=== PATIENT | female | born 1950 | race Caucasian/White ===

== ENCOUNTER 2019-10-30 05:13 | Inpatient (IN) ==
[2019-10-30] MEDS ORDERED: ASPIRIN CHEW 324 MG PO STA (05:27)
[2019-10-30] MEDS ORDERED: NITROGLYCERIN 2% OINTMENT 30GM TUBE EXT ONE (05:27)
--- NOTE | 2019-10-30 05:34 | Emergency Department Note ---
Impression & Plan Substernal chest pain ED Provider Note Name: KASANDRA SPARROW Age: 69 Sex: F Arrives Via: Walk-In Informant: Patient ED Provider: Drew Do MD Chief Complaint: Chest Pain Impression: Substernal Chest Pain Medical Decision Makin yr old female with CAD, Anxiety/Depression, GERD, HTN, DLP, Migraines, Vit D Deficiency arrives with substernal chest pain resolved with SLNTG. ASA given and nitro paste. Initial EKG with anterior T wave inversions but similar to previous EKG 2 years ago. Labs unremarkable with negative trop and CXR clear. With extensive history and fact she is having increasing dyspnea on exertion felt that she will need to come in for further management and evaluation, especially given chest pain began just 1.5 hrs CRUSHER. Symptoms do not seem consistent with PE nor dissection. She does not appear to have acute infection at this time. Prior Medical Record and Triage/Nursing Notes reviewed by Me Additional history obtained from Chart Differentials:Cardiac ischemia, aortic dissection, pulmonary embolism, pneumothorax, pneumonia, pericarditis, myocarditis, esophageal rupture, GERD, cholecystitis, pancreatitis, musculoskeletal, as well as other pathologies. Vital Signs: reviewed and remarkable for no significant abnormalities Interventions: ASA 324mg PO, Nitro Paste Labs:Reviewed and remarkable for no significant abnormalities Imaging:X ray results are stated below per my interpretation: Chest: 1 view: No infiltrate, no effusion, normal cardiac border. EKG:Per My Interpretation: Indication Chest Pain: NSR 70 bpm, qtc 434 with non- specific anterior t wave abnormalities similar to previous ekgs. No Ectopy. No Ischemia. Compared to EKG 03/17/19, no significant changes. Cardiac/Tele Monitoring: Cardiac Monitoring: An Order was placed for continuous cardiac monitoring. The monitor shows a rate of 70 with a normal sinus rhythm. Consults:Dr Cory SMITH Hospitalist for further management Plan: Disposition:Hospitalization. Condition: Good Blood pressure:Normal.No Referral necessary Prescriptions:none PDMP: n/a History of Present Illness:69 / pleasant female with history of CAD s/p stent x 2 in 2007, HTN, Depression, GERD, Migraine, DLP, Vitamin D Deficiency, Anxiety arrives for evaluation of chest pain. Patient notes she awoke with substernal chest pain around 4 am (~1.5 hr CRUSHER). Pain heavy and crushing. Associated with shortness of breath. No syncope, palpitations, nausea, vomiting. She took 2 Rolaids without improvement. Took 1 SLNTG and pain improved, now just mildly dull. Notes this is not like previous GERD symptoms. She notes she has been having increasing SHOB with exertion, better with rest over last few weeks. Denies chest pains until tonight. Denies trauma, injury, falls. Denies fevers, chills, abdominal pain, back pain, leg swelling, calf pain, rashes nor other symptoms. She has had no recent travel. ROS: See above HPI for pertinent positives & negatives. A total of 10 systems reviewed and were otherwise negative. 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 EYES: No scleral icterus, unremarkable pupils. ENT: Mucous membranes moist, no nasal congestion. NECK: No masses appreciated, nomeningismus, trachea is midline. RESPIRATORY: No dyspnea. Clear to auscultation and equal bilaterally. No wheeze, no rhonchi. CARDIOVASCULAR: Regular rate and rhythm.No murmurs, rubs, gallops appreciated. GASTROINTESTINAL: Abdomen soft, non-tender, no peritonitis.Bowel sounds positive.No masses appreciated. BACK: No midline tenderness, no CVA tenderness EXTREMITIES: Normal motion all extremities, no cyanosis, no edema. NEUROLOGIC: Alert and oriented, no acute motor or sensory deficits, no focal weakness, cranial nerves grossly intact. SKIN: No rash, no jaundice, no diaphoresis. PSYCH: Appropriate GCS: 15 ED Course: Times/Reassessments: Stable, feeling well, agreeable hospitalization Drew Do MD Past Med/Surg History Medical History (Updated 10/30/19 @ 06:32 by Ana Ray DO) Barretts esophagus Depression Former smoker Heart attack 2007 Herpes simplex Migraine headache Tubular adenoma Upper respiratory tract infection Social History Smoking Status: Former smoker Age Started Using Tobacco: 28; Age Quit Using Tobacco: 49; Second Hand Exposure: No; Hx Alcohol Use: No Hx Substance Use: No Preferred Language: Mohawk Communication Ability: Effective Visual Impairment: No Limitations Hearing Ability: Normal Performance Test Architect Required: No Beliefs That Will Affect Care: None marital status: Single Current Living Situation: Alone current occupational status: unemployed Feels Safe at Home: Yes Dental Care, Regularly: Yes Physical Activity Frequency: Does not Exercise Allergies Allergies Allergy/AdvReac Type Severity Reaction Status Date / Time No Known Drug Allergies Allergy Unknown Verified 10/30/19 05:42 Home Meds Home Medications Medication Instructions Recorded Confirmed aspirin [Aspir-Low] 81 mg PO QAM 01/15/19 10/30/19 cholecalciferol (vitamin D3) 1,000 units PO QAM 01/15/19 10/30/19 paroxetine HCl 40 mg PO QAM 01/15/19 10/30/19 Previous Rx's Medication Instructions Recorded buspirone 5 mg tablet 5 mg PO QAM #90 tab 08/31/19 losartan 25 mg tablet 25 mg PO QPM #90 tab 08/31/19 dicyclomine 10 mg capsule 10 mg PO TID #360 cap 09/02/19 valacyclovir 1 gram tablet 1,000 mg PO QAM #90 tab 09/08/19 budesonide 3 mg 9 mg PO DAILY 56 Days #168 ea 09/23/19 capsule,delayed,extended release diclofenac sodium 1 % topical gel 2 gm TOP QID #100 gm 09/23/19 metoprolol tartrate 50 mg tablet 25 mg PO BID #90 tab 09/23/19 omeprazole 20 mg capsule,delayed 20 mg PO DAILY #90 cap 09/23/19 release rosuvastatin 40 mg tablet 40 mg PO QAM #90 tab 09/23/19 Results & Data (ED) Vital Signs Vital Signs - 24 hr 10/30/19 05:20 10/30/19 05:30 10/30/19 06:01 Temperature 37.0 C Temperature Source Oral Pulse Rate 69 67 66 Pulse Rate from SpO2 Sensor 69 66 Respiratory Rate 17 14 14 Respiratory Effort / Characteristics Non-Labored Spontaneous Respiratory Depth Normal Blood Pressure 140/76 119/76 137/76 Blood Pressure Mean 95 89 93 Pulse Oximetry 96 96 94 Oxygen Delivery Method Room Air Sepsis New/Unexplained Change in Mental Status N/A Sepsis Action Taken by Nursing No Action Required Laboratory Data Result diagrams: 10/30/19 05:25 10/30/19 05:25 Lab Results 10/30/19 10/30/19 10/30/19 Range/Units 05:25 05:25 05:25 WBC 7.68 (4.8-10.8) K/uL RBC 4.70 (4.2-5.4) M/uL Hgb 15.2 (12.0-16.0) g/dL Hct 44.5 (37-47) % MCV 94.7 (80-100) fL MCH 32.3 (25-34) pg MCHC 34.2 (32-36) g/dL RDW Std Deviation 45.1 (36.4-46.3) fL RDW Coeff of Jenae 12.9 (11.5-14.5) % Plt Count 229 (130-400) K/uL MPV 10.4 (7.4-10.4) fL Immature Gran % (Auto) 0.3 % Neut % (Auto) 39.0 % Lymph % (Auto) 42.8 % Banner % (Auto) 14.1 % Eos % (Auto) 3.3 % Baso % (Auto) 0.5 % Neut # (Auto) 3.00 (1.4-6.5) K/uL Lymph # (Auto) 3.29 (1.2-3.4) K/uL Banner # (Auto) 1.08 H (0.11-0.59) K/uL Eos # (Auto) 0.25 (0-0.5) K/uL Baso # (Auto) 0.04 (0-0.2) K/uL Immature Gran # (Auto) 0.02 (0.00-0.02) K/uL PT 10.4 (9.0-12.0) Seconds INR 1.0 (0.9-1.1) APTT 25.2 (21.0-31.0) Seconds PTT Ratio 0.9 Sodium 141 (136-145) mmol/L Potassium 4.2 (3.5-5.1) mmol/L Chloride 109 H (98-107) mmol/L Carbon Dioxide 28 (21-32) mmol/L Anion Gap 4.0 (3-11) BUN 15 (7-18) mg/dl Creatinine 0.96 (0.6-1.2) mg/dl Est Cr Clr Drug Dosing 54.8 ml/min Est GFR ( Amer) 69.0 Est GFR (Non-Af Amer) 59.5 BUN/Creatinine Ratio 16.1 (10-20) Glucose 100 H (70-99) mg/dl Calcium 8.8 (8.5-10.1) mg/dl Magnesium 1.9 (1.8-2.4) mg/dl Total Bilirubin 0.4 (0.2-1) mg/dl Direct Bilirubin < 0.1 (0-0.2) mg/dl AST 25 (15-37) U/L ALT 47 (12-78) U/L Alkaline Phosphatase 70 (45-117) U/L POC Troponin I (0-0.045) ng/ml Troponin I < 0.015 (0-0.045) ng/ml Total Protein 7.2 (6.4-8.2) gm/dl Albumin 3.7 (3.4-5.0) gm/dl Lipase 155 (73-393) U/L 10/30/19 Range/Units 05:29 WBC (4.8-10.8) K/uL RBC (4.2-5.4) M/uL Hgb (12.0-16.0) g/dL Hct (37-47) % MCV (80-100) fL MCH (25-34) pg MCHC (32-36) g/dL RDW Std Deviation (36.4-46.3) fL RDW Coeff of Jenae (11.5-14.5) % Plt Count (130-400) K/uL MPV (7.4-10.4) fL Immature Gran % (Auto) % Neut % (Auto) % Lymph % (Auto) % Banner % (Auto) % Eos % (Auto) % Baso % (Auto) % Neut # (Auto) (1.4-6.5) K/uL Lymph # (Auto) (1.2-3.4) K/uL Banner # (Auto) (0.11-0.59) K/uL Eos # (Auto) (0-0.5) K/uL Baso # (Auto) (0-0.2) K/uL Immature Gran # (Auto) (0.00-0.02) K/uL PT (9.0-12.0) Seconds INR (0.9-1.1) APTT (21.0-31.0) Seconds PTT Ratio Sodium (136-145) mmol/L Potassium (3.5-5.1) mmol/L Chloride (98-107) mmol/L Carbon Dioxide (21-32) mmol/L Anion Gap (3-11) BUN (7-18) mg/dl Creatinine (0.6-1.2) mg/dl Est Cr Clr Drug Dosing ml/min Est GFR ( Amer) Est GFR (Non-Af Amer) BUN/Creatinine Ratio (10-20) Glucose (70-99) mg/dl Calcium (8.5-10.1) mg/dl Magnesium (1.8-2.4) mg/dl Total Bilirubin (0.2-1) mg/dl Direct Bilirubin (0-0.2) mg/dl AST (15-37) U/L ALT (12-78) U/L Alkaline Phosphatase (45-117) U/L POC Troponin I < 0.03 (0-0.045) ng/ml Troponin I (0-0.045) ng/ml Total Protein (6.4-8.2) gm/dl Albumin (3.4-5.0) gm/dl Lipase (73-393) U/L Administered Medications Aspirin (Ecotrin Ectab) 81 mg PO QAM [facility] Stop: 11/29/19 08:59 Last Admin: 10/30/19 08:56 Dose: 81 mg Documented by: [id number] Budesonide (Entocort Ec) 9 mg PO DAILY [facility] Stop: 11/29/19 08:59 Last Admin: 10/30/19 08:56 Dose: 9 mg Documented by: [id number] Buspirone HCl (Buspar) 5 mg PO QAM [facility] Stop: 11/29/19 08:59 Last Admin: 10/30/19 08:57 Dose: 5 mg Documented by: [id number] Diclofenac Sodium (Voltaren 1% Top) 2 gm EXT QID [facility] Stop: 11/29/19 08:59 Last Admin: 10/30/19 20:10 Dose: Not Given Documented by: [id number] Admin: 10/30/19 17:37 Dose: Not Given Documented by: [id number] Admin: 10/30/19 13:07 Dose: Not Given Documented by: [id number] Admin: 10/30/19 09:00 Dose: Not Given Documented by: [id number] Dicyclomine HCl (Bentyl) 10 mg PO TID [facility] Stop: 11/29/19 08:59 Last Admin: 10/30/19 20:08 Dose: 10 mg Documented by: [id number] Admin: 10/30/19 14:49 Dose: Not Given Documented by: [id number] Admin: 10/30/19 08:57 Dose: 10 mg Documented by: [id number] Losartan Potassium (Cozaar) 25 mg PO QPM [facility] Stop: 11/29/19 20:59 Last Admin: 10/30/19 20:08 Dose: 25 mg Documented by: [id number] Metoprolol Tartrate (Lopressor) 25 mg PO BID [facility] Stop: 11/29/19 08:59 Last Admin: 10/30/19 20:09 Dose: 25 mg Documented by: [id number] Admin: 10/30/19 08:58 Dose: 25 mg Documented by: [id number] Pantoprazole Sodium (Protonix) 40 mg PO DAILY [facility] Stop: 11/29/19 08:59 Last Admin: 10/30/19 08:58 Dose: 40 mg Documented by: [id number] Paroxetine HCl (Paxil) 40 mg PO QAM [facility] Stop: 11/29/19 08:59 Last Admin: 10/30/19 08:58 Dose: 40 mg Documented by: [id number] Rosuvastatin Calcium (Crestor) 40 mg PO QAM [facility] Stop: 11/29/19 08:59 Last Admin: 10/30/19 08:58 Dose: 40 mg Documented by: [id number] Valacyclovir HCl (Valtrex) 1,000 mg PO QAM [facility] Stop: 11/29/19 08:59 Last Admin: 10/30/19 08:59 Dose: 1,000 mg Documented by: [id number] Vitamin D (Vitamin D3) 1,000 units PO QAM [facility] Stop: 11/29/19 08:59 Last Admin: 10/30/19 08:57 Dose: 1,000 units Documented by: [id number] Discontinued Medications Aspirin (Aspirin) 324 mg PO NOW STA Stop: 10/30/19 05:28 Last Admin: 10/30/19 05:36 Dose: 324 mg Documented by: [id number] Nitroglycerin (Nitro-Bid 2%) 1 inch EXT NOW ONE Stop: 10/30/19 05:28 Last Admin: 10/30/19 05:36 Dose: 1 inch Documented by: [id number] Pneumococcal Polyvalent Vaccine (Pneumovax-23) 25 mcg IM .ONCE ONE Stop: 10/30/19 07:52 Last Admin: 10/30/19 09:00 Dose: Not Given Documented by: [id number] Discharge Plan Visit Data *Final* Discharge Date/Time: 10/30/19 06:41 Chief Complaint: Cardiac Assessment Stated Complaint: CHEST PAIN,NAUSEA,DIARRHEA,SOB ED Provider: Drew Do Discharge Problem: Substernal chest pain Patient Disposition: Admitted As Inpatient Discharge Instructions Interventions: ED Discharge Assessment Last Done: 10/30/19 06:41
[2019-10-30 05:42] LABS: Basophils # (auto) 0.04 K/uL (0-0.2); Basophils % (auto) 0.5 %; Eosinophils # (auto) 0.25 K/uL (0-0.5); Eosinophils % (auto) 3.3 %; Hematocrit (blood only) 44.5 % (37-47); Hemoglobin 15.2 g/dL (12.0-16.0); Immature Granulocytes # (auto) 0.02 K/uL (0.00-0.02); Immature Granulocytes % (auto) 0.3 %; Lymphocytes # (auto) 3.29 K/uL (1.2-3.4); Lymphocytes % (auto) 42.8 %; Mean Corpuscular Hemoglobin 32.3 pg (25-34); Mean Corpuscular Hgb Conc 34.2 g/dL (32-36); Mean Corpuscular Volume 94.7 fL (80-100); Mean Platelet Volume 10.4 fL (7.4-10.4); Monocytes # (auto) 1.08 K/uL (0.11-0.59); Monocytes % (auto) 14.1 %; Platelet Count 229 K/uL (130-400); RDW Coefficient of Variation 12.9 % (11.5-14.5); RDW Standard Deviation 45.1 fL (36.4-46.3); White Blood Count 7.68 K/uL (4.8-10.8)
[2019-10-30 05:53] LABS: Partial Thromboplastin Ratio 0.9; Partial Thromboplastin Time 25.2 Seconds (21.0-31.0); Prothrombin Time 10.4 Seconds (9.0-12.0)
[2019-10-30 05:59] LABS: Alanine Aminotransferase 47 U/L (12-78); Albumin Level 3.7 gm/dl (3.4-5.0); Aspartate Aminotransferase 25 U/L (15-37); BUN Creatinine Ratio 16.1 (10-20); Bilirubin Direct < 0.1 mg/dl (0-0.2); Blood Urea Nitrogen 15 mg/dl (7-18); Calcium 8.8 mg/dl (8.5-10.1); Carbon Dioxide 28 mmol/L (21-32); Chloride 109 mmol/L (98-107); Creatinine Clr Calc Pharmacy 54.8 ml/min; Est GFR (Non-African American) 59.5; Glucose 100 mg/dl (70-99); Lipase 155 U/L (73-393); Magnesium 1.9 mg/dl (1.8-2.4); Potassium 4.2 mmol/L (3.5-5.1); Sodium 141 mmol/L (136-145)
[2019-10-30 06:05] LABS: Alkaline Phosphatase 70 U/L (45-117); Bilirubin,Total 0.4 mg/dl (0.2-1); Total Protein 7.2 gm/dl (6.4-8.2); Troponin I < 0.015 ng/ml (0-0.045)
--- NOTE | 2019-10-30 06:33 | History & Physical Report ---
Date of Service October 30, 2019 Assessment & Plan (1) Substernal chest pain: 69-year-old female with history of hypertension, hyperlipidemia, CAD status post MN in 2007 with stent placement x2 presenting with acute onset substernal chest pain approximately 2.5 hours ago associated with nausea /shortness of breath/diarrhea. Troponin x1-, EKG with T wave inversions now present in anterior leads. Observation to medical floor telemetry Trend troponin q. 8 hours x 3 sets Nitroglycerin and morphine as needed for chest pain Continue home aspirin, metoprolol, losartan, Crestor Consider inpatient stress testing if troponin remain negative Present on Admission?: Yes (2) Coronary artery disease: Patient with history of CAD status post MN in 2007 with stent placement x2 presenting with chest pain as above Continue aspirin 81 mg p.o. daily Continue metoprolol 25 mg p.o. twice daily Continue losartan 25 mg p.o. every afternoon Continue Crestor 40 mg p.o. every morning Present on Admission?: Yes (3) Microscopic colitis: Chronic. Well-controlled. Continue dicyclomine 10 mg p.o. 3 times daily Continue budesonide 9 mg p.o. daily Present on Admission?: Yes (4) HTN (hypertension): Blood pressure stable, 140/76 at present Continue losartan 25 mg p.o. every afternoon Continue metoprolol 25 mg p.o. twice daily Continue to monitor Present on Admission?: Yes (5) Hyperlipidemia: Chronic. Stable. Continue Crestor 40 mg p.o. every morning Present on Admission?: Yes (6) GERD (gastroesophageal reflux disease): Chronic. Stable. Continue omeprazole 20 mg p.o. daily Present on Admission?: Yes (7) Anxiety: Chronic. Stable. Continue paroxetine 40 mg p.o. every morning Continue buspirone 5 mg p.o. every morning FENHep-Lock. Electrolytes within normal limits. Heart healthy diet as tolerated Prophylaxislow risk for DVT. Encourage ambulation with assistance as needed Codefull per discussion with patient Dispositionobservation to medical floor telemetry Present on Admission?: Yes Admission and Anticipated Discharge Date Admission Date: 10/30/2019 Anticipated date of discharge: 10/31/19 History of Present Illness Chief Complaint: chest pain Primary Care Provider: Terrell Duong MD Amy Vieira is a 69yo female with history of HTN, HLP, strong family history of CAD as well as personal history of CAD with MN in 2007 s/p cardiac stent x 2 performed in [place]. Patient reports that she had 3 blockages however only 2 were amenable to stent. This morning around 0400 the patient was woken from sleep by chest pain. Chest pain was substernal, 10 out of 10 in severity, heavy pressure in nature with radiation across the precordium. Pain associated with shortness of breath, nausea and diarrhea. The patient took 2 Rolaids without relief that a sublingual nitro x1 which improved her pain. She reports that the symptoms are quite similar to when she had her MN back in 2007. Presently she feels much improved, still some mild chest heaviness. Patient follows with Dr. Mcfarland from cardiology. She saw him on 10/28/2019 with complaint of progressive dyspnea on exertion. Dr. Kurtz mentioned he wanted to order a stress test on her to be performed outpatient. ER course: Aspirin 325 mg, Nitropaste Allergies Allergy/AdvReac Type Severity Reaction Status Date / Time No Known Drug Allergies Allergy Unknown Verified 10/30/19 05:42 Home Medications Home Medications Medication Instructions Recorded Confirmed Type aspirin [Aspir-Low] 81 mg PO QAM 01/15/19 10/30/19 History cholecalciferol (vitamin D3) 1,000 units PO QAM 01/15/19 10/30/19 History paroxetine HCl 40 mg PO QAM 01/15/19 10/30/19 History buspirone 5 mg tablet 5 mg PO QAM #90 tab 08/31/19 10/30/19 Rx losartan 25 mg tablet 25 mg PO QPM #90 tab 08/31/19 10/30/19 Rx dicyclomine 10 mg capsule 10 mg PO TID #360 cap 09/02/19 10/30/19 Rx valacyclovir 1 gram tablet 1,000 mg PO QAM #90 tab 09/08/19 10/30/19 Rx budesonide 3 mg 9 mg PO DAILY 56 Days #168 ea 09/23/19 10/30/19 Rx capsule,delayed,extended release diclofenac sodium 1 % topical gel 2 gm TOP QID #100 gm 09/23/19 10/30/19 Rx metoprolol tartrate 50 mg tablet 25 mg PO BID #90 tab 09/23/19 10/30/19 Rx omeprazole 20 mg capsule,delayed 20 mg PO DAILY #90 cap 09/23/19 10/30/19 Rx release rosuvastatin 40 mg tablet 40 mg PO QAM #90 tab 09/23/19 10/30/19 Rx Past Med/Surg History Medical History (Updated 10/30/19 @ 06:32 by Ana Ray DO) Barretts esophagus Depression Former smoker Heart attack 2007 Herpes simplex Migraine headache Tubular adenoma Upper respiratory tract infection Social History Smoking Status: Former smoker Age Started Using Tobacco: 28; Age Quit Using Tobacco: 49; Second Hand Exposure: No; Hx Alcohol Use: No Hx Substance Use: No Preferred Language: Belarusian Communication Ability: Effective Visual Impairment: No Limitations Hearing Ability: Normal Commercial Hvac Service Technician Required: No Beliefs That Will Affect Care: None marital status: Single Current Living Situation: Alone current occupational status: unemployed Feels Safe at Home: Yes Dental Care, Regularly: Yes Physical Activity Frequency: Does not Exercise Review of Systems Review of Systems: All systems reviewed & are unremarkable except as noted in HPI & below Physical Exam Physical Exam: General: patient resting comfortably, NAD, non-toxic in appearance, AA&O x 4 Skin: warm, dry, intact, no rashes or lesions HEENT: NC/AT, PERRL, EOMI, anicteric sclera, conjunctiva without injection, external ear normal to inspection and nontender, nares patent, moist mucus membranes, dentition intact, no oropharyngeal lesions, neck supple, trachea midline, no LAD, no thyromegaly, no JVD Heart: +S1/S2, regular, no m/r/g, + chest wall tenderness with palpation Lungs: equal air entry bilaterally, no rales/rhonchi/wheezes Abd: +BS, soft, NT/ND, no masses/organomegaly/ascites Ext: warm, 2+ pulses in UE/LE bilaterally, no clubbing/cyanosis or edema Neuro: nonfocal, patient AA&O x 4, speech intact, no facial droop, moving all extremities on command with equal strength 5/5 Results & Data Results & Data ([facility]) Vital Signs (Past 12 Hours) Vital Signs Temp Pulse Resp BP Pulse Ox 10/30/19 05:30 67 14 119/76 96 10/30/19 05:20 37.0 C 69 17 140/76 96 Laboratory Results Lab Results 10/30/19 10/30/19 10/30/19 Range/Units 05:25 05:25 05:25 WBC 7.68 (4.8-10.8) K/uL RBC 4.70 (4.2-5.4) M/uL Hgb 15.2 (12.0-16.0) g/dL Hct 44.5 (37-47) % MCV 94.7 (80-100) fL MCH 32.3 (25-34) pg MCHC 34.2 (32-36) g/dL RDW Std Deviation 45.1 (36.4-46.3) fL RDW Coeff of Jenae 12.9 (11.5-14.5) % Plt Count 229 (130-400) K/uL MPV 10.4 (7.4-10.4) fL Immature Gran % (Auto) 0.3 % Neut % (Auto) 39.0 % Lymph % (Auto) 42.8 % Alexander % (Auto) 14.1 % Eos % (Auto) 3.3 % Baso % (Auto) 0.5 % Neut # (Auto) 3.00 (1.4-6.5) K/uL Lymph # (Auto) 3.29 (1.2-3.4) K/uL Alexander # (Auto) 1.08 H (0.11-0.59) K/uL Eos # (Auto) 0.25 (0-0.5) K/uL Baso # (Auto) 0.04 (0-0.2) K/uL Immature Gran # (Auto) 0.02 (0.00-0.02) K/uL PT 10.4 (9.0-12.0) Seconds INR 1.0 (0.9-1.1) APTT 25.2 (21.0-31.0) Seconds PTT Ratio 0.9 Sodium 141 (136-145) mmol/L Potassium 4.2 (3.5-5.1) mmol/L Chloride 109 H (98-107) mmol/L Carbon Dioxide 28 (21-32) mmol/L Anion Gap 4.0 (3-11) BUN 15 (7-18) mg/dl Creatinine 0.96 (0.6-1.2) mg/dl Est Cr Clr Drug Dosing 54.8 ml/min Est GFR ( Amer) 69.0 Est GFR (Non-Af Amer) 59.5 BUN/Creatinine Ratio 16.1 (10-20) Glucose 100 H (70-99) mg/dl Calcium 8.8 (8.5-10.1) mg/dl Magnesium 1.9 (1.8-2.4) mg/dl Total Bilirubin 0.4 (0.2-1) mg/dl Direct Bilirubin < 0.1 (0-0.2) mg/dl AST 25 (15-37) U/L ALT 47 (12-78) U/L Alkaline Phosphatase 70 (45-117) U/L POC Troponin I (0-0.045) ng/ml Troponin I < 0.015 (0-0.045) ng/ml Total Protein 7.2 (6.4-8.2) gm/dl Albumin 3.7 (3.4-5.0) gm/dl Lipase 155 (73-393) U/L 10/30/19 Range/Units 05:29 WBC (4.8-10.8) K/uL RBC (4.2-5.4) M/uL Hgb (12.0-16.0) g/dL Hct (37-47) % MCV (80-100) fL MCH (25-34) pg MCHC (32-36) g/dL RDW Std Deviation (36.4-46.3) fL RDW Coeff of Jenae (11.5-14.5) % Plt Count (130-400) K/uL MPV (7.4-10.4) fL Immature Gran % (Auto) % Neut % (Auto) % Lymph % (Auto) % Alexander % (Auto) % Eos % (Auto) % Baso % (Auto) % Neut # (Auto) (1.4-6.5) K/uL Lymph # (Auto) (1.2-3.4) K/uL Alexander # (Auto) (0.11-0.59) K/uL Eos # (Auto) (0-0.5) K/uL Baso # (Auto) (0-0.2) K/uL Immature Gran # (Auto) (0.00-0.02) K/uL PT (9.0-12.0) Seconds INR (0.9-1.1) APTT (21.0-31.0) Seconds PTT Ratio Sodium (136-145) mmol/L Potassium (3.5-5.1) mmol/L Chloride (98-107) mmol/L Carbon Dioxide (21-32) mmol/L Anion Gap (3-11) BUN (7-18) mg/dl Creatinine (0.6-1.2) mg/dl Est Cr Clr Drug Dosing ml/min Est GFR ( Amer) Est GFR (Non-Af Amer) BUN/Creatinine Ratio (10-20) Glucose (70-99) mg/dl Calcium (8.5-10.1) mg/dl Magnesium (1.8-2.4) mg/dl Total Bilirubin (0.2-1) mg/dl Direct Bilirubin (0-0.2) mg/dl AST (15-37) U/L ALT (12-78) U/L Alkaline Phosphatase (45-117) U/L POC Troponin I < 0.03 (0-0.045) ng/ml Troponin I (0-0.045) ng/ml Total Protein (6.4-8.2) gm/dl Albumin (3.4-5.0) gm/dl Lipase (73-393) U/L Diagnostic Findings Chest x-rayunremarkable, formal read pending ECG Additional Comments: Study reveals normal sinus rhythm at 70 bpm, normal axis, [place] = 152, QRS = 86, QTc = 434. T wave inversions present in anterior leads V1, V2, V3 Code Status & VTE Plan Code Status Full code PG Care Time/CCT Total # of Minutes Spent Total Time Spent with Patient: Total time spent is greater than 50% in coordination of care (as documented) at patient's floor/unit and/or counseling patient: Coding Level of Care Code 50772 OBS Care - Level 3 Diagnoses Substernal chest pain R07.2 Coronary artery disease I25.10 Coronary Disease-Associated Artery/Lesion type: [place] artery [place] vs. transplanted heart: [place] heart Associated angina: without angina Microscopic colitis K52.839 Microscopic colitis type: unspecified HTN (hypertension) I10 Hypertension type: unspecified Hyperlipidemia E78.5 Hyperlipidemia type: unspecified GERD (gastroesophageal reflux disease) K21.9 Esophagitis presence: esophagitis presence not specified Anxiety F41.9 (1) Microscopic colitis Microscopic colitis type: unspecified Qualified Code(s): K52.839 - Microscopic colitis, unspecified (2) HTN (hypertension) Hypertension type: unspecified Qualified Code(s): I10 - Essential (primary) hypertension (3) Hyperlipidemia Hyperlipidemia type: unspecified Qualified Code(s): E78.5 - Hyperlipidemia, unspecified (4) GERD (gastroesophageal reflux disease) Esophagitis presence: esophagitis presence not specified Qualified Code(s): K21.9 - Gastro-esophageal reflux disease without esophagitis (5) Coronary artery disease Coronary Disease-Associated Artery/Lesion type: [place] artery [place] vs. transplanted heart: [place] heart Associated angina: without angina Qualified Code(s): I25.10 - Atherosclerotic heart disease of [place] coronary artery without angina pectoris
--- NOTE | 2019-10-30 07:25 | XRay Report ---
XR chest 1V portable CLINICAL HISTORY: Chest Pain pain COMPARISON STUDY: 03/17/2019 FINDINGS: The bones soft tissues and hemidiaphragms are normal. The cardiomediastinal silhouette is n ormal. The lungs are clear. The pulmonary vasculature is normal. IMPRESSION: Negative chest. ACT 112: Negative or not required by law. The above report was generated using voice recognition software. It may contain grammatical, syntax or spelling errors. Electronically signed by: Alexys Rm M.D. 10/30/2019 7:24 AM
[2019-10-30] MEDS ORDERED: PNEUMOCOCCAL POLYSACCHARIDES 25 MCG/0.5 ML VIAL/SYR IM ONE (07:51)
[2019-10-30] MEDS ORDERED: PNEUMOCOCCAL ADMINISTRATION CHARGE ONE (07:51)
[2019-10-30] MEDS ORDERED: ONDANSETRON INJ 2 MG/ML 2 ML VIAL IV PRN (08:01)
[2019-10-30] MEDS: ASPIRIN 81 MG ECTAB PO SCH (08:56)
[2019-10-30] MEDS: BUDESONIDE EC 3 MG CAP PO SCH (08:56)
[2019-10-30] MEDS: CHOLECALCIFEROL 1,000 UNITS 25 MCG TAB PO SCH (08:57)
[2019-10-30] MEDS: DICYCLOMINE HCL 10 MG CAP PO SCH ×3 (08:57→20:08)
[2019-10-30] MEDS: ROSUVASTATIN CALCIUM 20 MG TAB PO SCH (08:58)
[2019-10-30] MEDS: PANTOprazole 40 MG TAB PO SCH (08:58)
[2019-10-30] MEDS: METOPROLOL TARTRATE 25 MG TAB PO SCH ×2 (08:58→20:09)
[2019-10-30] MEDS: PARoxetine HCL 20 MG TAB PO SCH (08:58)
[2019-10-30] MEDS: VALACYCLOVIR HCL 500 MG TABLET PO SCH (08:59)
[2019-10-30] MEDS: DICLOFENAC SOD 1% GEL 100 GM TUBE EXT SCH ×4 (09:00→20:10)
--- NOTE | 2019-10-30 13:43 | Electrocardiogram Report ---
Test Reason : Blood Pressure : / mmHG Vent. Rate : 070 BPM Atrial Rate : 070 BPM P-R Int : 152 ms QRS Dur : 086 ms QT Int : 402 ms P-R-T Axes : -29 013 010 degrees QTc Int : 434 ms Normal sinus rhythm Nonspecific T wave abnormality Abnormal ECG When compared with ECG of 17-MAR-2019 14:32, T wave inversion now evident in Anterior leads Confirmed by Macario Khan ([id number]) on 10/30/2019 1:43:23 PM Referred By: REFERRED SELF Confirmed By:Macario Khan
[2019-10-30 14:45] LABS: Appearance Urine Clear (Clear); Bacteria Urine Automated Negative (Negative); Bilirubin Urine Negative (Negative); Blood Urine Negative (Negative); Color Urine Yellow; Epithelial Cell Urine Auto 20-30 /lpf (0-5); Glucose Urine UA Negative (Negative); Ketones Urine Negative (Negative); Leukocyte Esterase Urine 2+ (Negative); Nitrite Urine Negative (Negative); Protein Urine Negative (Negative); RBC Urine Automated 0-4 /hpf (0-4); Specific Gravity Urine 1.009 (1.000-1.030); Urobilinogen Urine Negative (Negative); pH Urine 5.5 (4.5-7.5)
[2019-10-30] MEDS: LOSARTAN POTASSIUM 25 MG TAB PO SCH (20:08)
[2019-10-31] MEDS: MoRPHine SULFATE 2 MG/ML CARP IV PRN (08:11)
[2019-10-31] MEDS: METOPROLOL TARTRATE 25 MG TAB PO SCH ×2 (08:18→20:44)
[2019-10-31] MEDS: PANTOprazole 40 MG TAB PO SCH (08:19)
[2019-10-31] MEDS: VALACYCLOVIR HCL 500 MG TABLET PO SCH (08:19)
[2019-10-31] MEDS: DICYCLOMINE HCL 10 MG CAP PO SCH ×3 (08:19→20:44)
[2019-10-31] MEDS: ASPIRIN 81 MG ECTAB PO SCH (08:20)
[2019-10-31] MEDS: ROSUVASTATIN CALCIUM 20 MG TAB PO SCH (08:20)
[2019-10-31] MEDS: CHOLECALCIFEROL 1,000 UNITS 25 MCG TAB PO SCH (08:20)
[2019-10-31] MEDS: PARoxetine HCL 20 MG TAB PO SCH (08:20)
[2019-10-31] MEDS: BUDESONIDE EC 3 MG CAP PO SCH (08:20)
[2019-10-31] MEDS: DICLOFENAC SOD 1% GEL 100 GM TUBE EXT SCH ×4 (08:21→20:45)
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
[2019-10-31] MEDS: LOSARTAN POTASSIUM 25 MG TAB PO SCH (20:44)
--- NOTE | 2019-10-31 22:00 | Hospitalist Progress Note ---
Date of Service October 31, 2019 Assessment & Plan (1) Substernal chest pain: 69-year-old female with history of hypertension, hyperlipidemia, CAD status post ID in 2007 with stent placement x2 presenting with acute onset substernal chest pain approximately 2.5 hours ago associated with nausea /shortness of breath/diarrhea. Troponin x1-, EKG with T wave inversions now present in anterior leads. Transitioned patient to admission Trend troponin q. 8 hours x 3 sets: all were ndgative. Continue home aspirin, metoprolol, losartan, Crestor consulted cardio: will hold off cath for now, will have doubtamine stress test in AM. (2) Coronary artery disease: Patient with history of CAD status post ID in 2007 with stent placement x2 presenting with chest pain as above Continue aspirin 81 mg p.o. daily Continue metoprolol 25 mg p.o. twice daily Continue losartan 25 mg p.o. every afternoon Continue Crestor 40 mg p.o. every morning (3) Microscopic colitis: Chronic. Well-controlled. Continue dicyclomine 10 mg p.o. 3 times daily Continue budesonide 9 mg p.o. daily (4) HTN (hypertension): Blood pressure stable, 140/76 at present Continue losartan 25 mg p.o. every afternoon Continue metoprolol 25 mg p.o. twice daily Continue to monitor (5) Hyperlipidemia: Chronic. Stable. Continue Crestor 40 mg p.o. every morning (6) GERD (gastroesophageal reflux disease): Chronic. Stable. Continue omeprazole 20 mg p.o. daily (7) Anxiety: Chronic. Stable. Continue paroxetine 40 mg p.o. every morning Continue buspirone 5 mg p.o. every morning FENHep-Lock. Electrolytes within normal limits. Heart healthy diet as tolerated Prophylaxislow risk for DVT. Encourage ambulation with assistance as needed [place] per discussion with patient y Admission and Anticipated Discharge Date Admission Date: October 30, 2019 Subjective Patient reports feeling well. She denies any dypsnea today or chest pain. Review of Systems Review of Systems: All systems reviewed & are unremarkable except as noted in HPI & below Physical Exam Physical Exam: General: patient resting comfortably, NAD, non-toxic in appearance, AA&O x 4 Skin: warm, dry, intact, no rashes or lesions HEENT: NC/AT, PERRL, EOMI, anicteric sclera, conjunctiva without injection, external ear normal to inspection and nontender, nares patent, moist mucus membranes, dentition intact, no oropharyngeal lesions, neck supple, trachea midline, no LAD, no thyromegaly, no JVD Heart: +S1/S2, regular, no m/r/g, + chest wall tenderness with palpation Lungs: equal air entry bilaterally, no rales/rhonchi/wheezes Abd: +BS, soft, NT/ND, no masses/organomegaly/ascites Ext: warm, 2+ pulses in UE/LE bilaterally, no clubbing/cyanosis or edema Neuro: nonfocal, patient AA&O x 4, speech intact, no facial droop, moving all extremities on command with equal strength 5/5 Results & Data Results & Data ([facility]) Vital Signs (Past 12 Hours) Vital Signs Temp Pulse Pulse Resp BP BP Pulse Ox 10/31/19 20:43 64 10/31/19 20:42 64 10/31/19 19:14 36.4 C L 59 L 19 107/61 95 10/31/19 14:51 36.6 C 59 L 19 118/53 L 94 10/31/19 14:21 62 10/31/19 11:42 36.9 C 63 20 108/68 94 PG Care Time/CCT Total # of Minutes Spent Total Time Spent with Patient: Total time spent is greater than 50% in coordination of care (as documented) at patient's floor/unit and/or counseling patient: Coding Level of Care Code 18307 Subseq Hosp Care Lvl 2 Diagnoses Substernal chest pain R07.2 Coronary artery disease I25.10 Associated angina: without angina Coronary Disease-Associated Artery/Lesion type: [place] artery [place] vs. transplanted heart: [place] heart Microscopic colitis K52.839 Microscopic colitis type: unspecified HTN (hypertension) I10 Hypertension type: unspecified Hyperlipidemia E78.5 Hyperlipidemia type: unspecified GERD (gastroesophageal reflux disease) K21.9 Esophagitis presence: esophagitis presence not specified Anxiety F41.9 Time Spent (min) 25 (1) Coronary artery disease Associated angina: without angina Coronary Disease-Associated Artery/Lesion type: [place] artery [place] vs. transplanted heart: [place] heart Qualified Code(s): I25.10 - Atherosclerotic heart disease of [place] coronary artery without angina pectoris (2) Hyperlipidemia Hyperlipidemia type: unspecified Qualified Code(s): E78.5 - Hyperlipidemia, unspecified (3) Microscopic colitis Microscopic colitis type: unspecified Qualified Code(s): K52.839 - Microscopic colitis, unspecified (4) GERD (gastroesophageal reflux disease) Esophagitis presence: esophagitis presence not specified Qualified Code(s): K21.9 - Gastro-esophageal reflux disease without esophagitis (5) HTN (hypertension) Hypertension type: unspecified Qualified Code(s): I10 - Essential (primary) hypertension
[2019-10-31] MEDS: MELATONIN 3 MG TAB PO PRN (23:32)
[2019-11-01] MEDS ORDERED: ATROPINE SULFATE 0.1 MG/ML 10ML SYR IV ONE ×2 (08:02→12:01)
[2019-11-01] MEDS ORDERED: DOBUTamine HCL 12.5 MG/ML 20 ML VIAL IV ONE (08:02)
[2019-11-01] MEDS ORDERED: METOPROLOL TARTRATE 1 MG/ML VIAL IV ONE ×2 (08:02→08:36)
[2019-11-01] MEDS: NITROGLYCERIN SL 0.4 MG/TAB TAB SL PRN ×3 (08:38→12:12)
[2019-11-01] MEDS ORDERED: fentaNYL citrate 100 MCG/2 ML VIAL ONE (08:55)
[2019-11-01] MEDS ORDERED: HEPARIN (PORCINE) 1000 UNIT/ML 10 ML (CATH LAB USE ONLY) ONE (08:55)
[2019-11-01] MEDS ORDERED: NITROGLYCERIN/D5W 100MCG/ML 20ML SYR ONE (08:55)
[2019-11-01] MEDS ORDERED: NiCARDipine HCL INJ 2.5 MG/ML 10 ML AMP ONE (08:55)
[2019-11-01] MEDS ORDERED: MIDAZOLAM HCL 1 MG/ML 2ML VIAL ONE (08:55)
--- NOTE | 2019-11-01 09:06 | Pre Anesthesia Assessment ---
Date of Service November 01, 2019 Pre Sedation Assessment Vital Signs Temp Pulse Pulse Resp BP BP Pulse Ox 11/01/19 07:00 36.6 C 60 18 124/71 92 11/01/19 04:00 36.5 C 60 20 89/50 L 91 10/31/19 23:29 37.0 C 58 L 17 110/67 91 10/31/19 20:43 64 10/31/19 20:42 64 10/31/19 19:14 36.4 C L 59 L 19 107/61 95 10/31/19 14:51 36.6 C 59 L 19 118/53 L 94 10/31/19 14:21 62 10/31/19 11:42 36.9 C 63 20 108/68 94 Cardiovascular + regular rate Respiratory normal respiratory effort, lungs clear to auscultation Pre-Sedation Airway Assessment Smoking Status: Former smoker Hx Sleep Apnea: No Hx Difficult Intubation: No Short, Thick Neck: No Thyromental Distance: > or= 3.5 Finger Breadths Oral Cavity: + WNL Mallampati Class: III ASA: ASA3 Procedure Planning Contraindications for Sedation: none Current Medications Reviewed: Yes Notes The planned sedation has been discussed with the patient. Informed Consent was obtained. I have identified the patient, determined the appropriateness of sedation and have assessed the patient immediately prior to the procedure. All medicine(s) and interventions are by my order.
--- NOTE | 2019-11-01 09:44 | Cardiac Catheterization ---
[facility] Data: Soft Tile Setter Cardiac Status Clinical evaluation leading to the procedure CAD Presenation: Positive Stress Test Diagnostic Physicians Name: Mikel Romero MD Closure Device Recommendations: PCI without planned CABG Cardiac Cath Procedure Full Procedure Date November 01, 2019 Pre-Procedure Diagnosis Pre-Procedure Diagnosis: Angina and Positive Stress Test AUC Score AUC Score: 8 Post-Procedure Diagnosis Post-Procedure Diagnosis: Severe CAD Procedure(s) Performed Procedure(s) Performed: Coronary Angiography and Left Heart Cath Loan Originator Mikel Romero MD Chief Development Officer(s) none Estimated Blood Loss Estimated Blood Loss: 10cc Medication(s) Medication(s): Fentanyl Summary of Findings Procedure performed: Left heart catheterization, selective coronary angiography Staff business economist: Mikel Romero MD Indication: The patient is a 69-year-old woman with a history of coronary disease having previously undergone stenting to the LAD and right coronary artery in 2008. She presented to the hospital symptoms of chest pain. She is also been having exertional dyspnea. She underwent dobutamine echocardiography which not reveal any objective ischemia but she did have symptoms of chest discomfort and subsequent nausea. Based on the persistent nature of her symptoms and concerns over stenosis she was brought to the catheterization suite for angiography. Procedure detail: The patient was informed of the risk benefits and alternatives to the intended procedure. She understood and wished to proceed. She was taken to the cardiac catheterization suite in a fasting state. Conscious sedation was administered per protocol and the patient was monitored electrocardiographically throughout today's procedure. The right radial artery was prepped and draped in usual sterile fashion. This area was anesthetized using subcutaneous administration of a Xylocaine solution. Right radial artery was subsequently accessed using Seldinger technique and a 5 [place] arterial sheath was placed at the site over guidewire. This sheath was used to facilitate passage of the cardiac catheters for selective coronary angiography and left heart catheterization. Images were obtained in multiple orthogonal views prior to removal of the catheters. Patient tolerated procedure well. There were no immediate complications. Equipment used: 5 Vietnamese [place] [address] [facility] Findings: Coronary angiography Left main: Left main coronary artery bifurcated normally into the left anterior descending and left circumflex artery. No disease in this vessel Left anterior descending: Left anterior descending had a stent in its proximal portion. There was approximately 40% in-stent stenosis at its maximum. There was a discrete 70% lesion proximal to the stent and a 90% lesion distal to the stent. There was one large diagonal branch that emanated from the mid stent. The ongoing vessel is relatively small. Left circumflex: Left circumflex artery is normal in size and caliber. It was nondominant. It bifurcated into a large OM system. There is no significant disease in this distribution Right coronary artery: Right coronary artery was a dominant vessel. It had a stent in its midportion. There was some stenosis immediately prior to the stent and a 90% lesion distal to the stent. Impression: Right dominant coronary system In-stent restenosis involving the left anterior descending Obstructive coronary disease involving the left anterior descending and right coronary arteries Normal left ventricular end-diastolic pressures No evidence of aortic stenosis Plan: Percutaneous intervention involving the LAD and possibly RCA Hemodynamics Rest Ao:: 90/55 mmHg Final Ao: 108/67 mmHg LV: 113/6 mmHg Left ventricular end-diastolic pressure 10 mmHg Recommendations Recommendations: PCI without planned CABG Radiation Exposure (mGy) 599 Contrast (mls) 35 Procedural Complication(s) None Disposition PCU I attest to the content of the Intraoperative Record and any orders documented therein. Any exceptions are noted below. [facility] Card Cath Procedure Codes Cardiac Catheterization Procedure 1: Cardiovascular Cath Procedures: 37660 Coronaries and LHC (+/-LV) Moderate Sedation Procedure 1: Sedation/Anesthesia: 60317 Mod Sedation by the same physician;Init15 Min Child Age 5 & Up PG Care Time/CCT Total # of Minutes Spent Total Time Spent with Patient: Total time spent is greater than 50% in coordination of care (as documented) at patient's floor/unit and/or counseling patient:
[2019-11-01] MEDS ORDERED: BIVALIRUDIN 250 MG VIAL (CATH LAB ONLY) ONE (09:47)
[2019-11-01] MEDS: ROSUVASTATIN CALCIUM 20 MG TAB PO SCH ×2 (10:28→11:49)
[2019-11-01] MEDS: BUDESONIDE EC 3 MG CAP PO SCH ×2 (10:28→11:50)
[2019-11-01] MEDS: ASPIRIN 81 MG ECTAB PO SCH (10:28)
[2019-11-01] MEDS: DICYCLOMINE HCL 10 MG CAP PO SCH ×3 (10:28→20:50)
[2019-11-01] MEDS: VALACYCLOVIR HCL 500 MG TABLET PO SCH ×2 (10:29→11:49)
[2019-11-01] MEDS: PANTOprazole 40 MG TAB PO SCH ×2 (10:29→11:48)
[2019-11-01] MEDS: DICLOFENAC SOD 1% GEL 100 GM TUBE EXT SCH ×4 (10:29→20:52)
[2019-11-01] MEDS: CHOLECALCIFEROL 1,000 UNITS 25 MCG TAB PO SCH ×2 (10:29→11:49)
[2019-11-01] MEDS: PARoxetine HCL 20 MG TAB PO SCH ×2 (10:29→11:49)
[2019-11-01] MEDS: METOPROLOL TARTRATE 25 MG TAB PO SCH ×2 (10:29→20:50)
[2019-11-01] MEDS ORDERED: CLOPIDOGREL BISULFATE 300 MG TAB ONE (10:35)
--- NOTE | 2019-11-01 10:38 | Post Operative Brief Note ---
Cardiology Brief Post Op Date of Surgery November 01, 2019 Pre & Post Diagnosis Operation Date: 11/01/19 09:00 69-year-old female, previous history of coronary artery disease with intracoronary stents placement to proximal LAD and mid right coronary artery. She was having symptoms of progressive angina, stress test was performed during which patient had quite significant symptoms concerning for obstructive coronary artery disease. Images were reportedly normal. Diagnostic cardiac catheterization revealed severe in-stent restenosis along with edge restenosis in both proximal and distal edge of LAD stent, also severe in-stent restenosis along with edge restenosis and distal right coronary artery stent. PCI performed of proximal left anterior descending artery with 2.75 mm x 33 mm Xience drug-eluting stent, postdilated with 3 mm NC balloon at nominal pressures with excellent angiographic results and normal flow. PCI of distal edge in-stent restenosis of mid right coronary artery stent performed with 3.5 mm x 18 mm Xience drug-eluting stent, postdilated with 4 mm NC balloon with excellent angiographic results and normal flow. Patient will be loaded with 600 mg of Plavix, continue the long-term dual antiplatelet therapy with aspirin and Plavix along with aggressive risk factor modification. Procedure PCI of proximal left anterior descending artery, mid to distal right coronary artery with placement of intracoronary drug-eluting stents. Masseur/Masseuse Sony Zaragoza MD Community Support Associate none Estimated Blood Loss 20 Findings Consistent with Post-Op Diagnosis
[2019-11-01] MEDS ORDERED: CLOPIDOGREL BISULFATE 300 MG TAB PO STA (10:40)
[2019-11-01] MEDS: ACETAMINOPHEN 325 MG TAB PO PRN (10:42)
--- NOTE | 2019-11-01 10:43 | Post Anesthesia Assessment ---
Date of Service November 01, 2019 Post Sedation Assessment Vital Signs Temp Pulse Pulse Resp BP BP Pulse Ox 11/01/19 10:38 63 20 129/78 94 11/01/19 07:00 36.6 C 60 18 124/71 92 11/01/19 04:00 36.5 C 60 20 89/50 L 91 10/31/19 23:29 37.0 C 58 L 17 110/67 91 10/31/19 20:43 64 10/31/19 20:42 64 10/31/19 19:14 36.4 C L 59 L 19 107/61 95 10/31/19 14:51 36.6 C 59 L 19 118/53 L 94 10/31/19 14:21 62 10/31/19 11:42 36.9 C 63 20 108/68 94 Recovery Score Activity: Moves 4 extremities Respiration: Deep Breath/Cough Circulation: +/-20% PreAnes Value Consciousness: Fully Awake Oxygen Saturation: > 92% On Room Air Post Anesthesia Score: 10 Discharge Sedation Level of Care: Phase I Post Sedation Plan On clinical assessment, the patient appears to have tolerated the sedation without complications. Patient is recovering as anticipated. Patient will continue to be monitored by nursing and may be discharged when sedation discharge criteria are met per below protocol. Upon Completions of procedure up to 15 minutes continue every 5 minute vital signs and the P.A.R. score; then discharge to a Phase I or Fast Track to Phase II per the following guidelines: * Discharge Patient to appropriate Phase II area if PAR is 8 or greater or return to pre- procedure baseline. The post - procedure orders will be as directed. * If PAR score is less than 8 or not return to pre-procedure baseline then patient will follow Phase I monitoring till PAR is reached for Phase II. The Phase I may be done in procedure room or may call to secure a Phase I area. * If naloxone or flumazenil are used for reversal, hold in Phase I for continued monitoring from when last reversal dose was given for a minimum of 60 minutes or longer pending the nurse and/or physician discretion of patient condition before discharge to Phase II. Please call the Sedation Physician to re-evaluate and complete post-note for discharge to Phase II area. Do NOT discharge from procedure sedation or Phase 1 until post- sedation evaluation note is complete by procedure /sedation MD Sedation Discharge Instructions to be given to the patient at discharge to home.
--- NOTE | 2019-11-01 10:45 | Cardiology Progress Note ---
Date of Service November 01, 2019 Assessment & Plan (1) Substernal chest pain: -her description of chest discomfort is concerning for angina pectoris. -minor T-wave changes in the anterior leads. -undetectable troponin. -dobutamine stress test this morning. (2) Coronary artery disease: -diagnosed at time of an [place] in 2007. -two intracoronary stents, details unknown. -continue metoprolol, losartan, rosuvastatin, and aspirin. (3) HTN (hypertension): -adequate control on current regimen. (4) Hyperlipidemia: -continue atorvastatin. Admission and Anticipated Discharge Date Admission Date: October 31, 2019 Anticipated date of discharge: 10/31/19 Subjective The patient is resting comfortably in bed without complaints of chest pain or dyspnea. She was seen just prior to her dobutamine stress test. Physical Exam Physical Exam: In general this is a well-developed well-nourished white female in no acute distress. HEENT exam is negative. Neck is supple with full carotid upstrokes. There are no carotid bruits. Jugular venous pressure is flat at 90. There is no thyromegaly. Cardiovascular exam reveals a regular rhythm with a normal S1 and S2. No S3, S4, or murmurs are noted. Lungs are clear without rales, rhonchi, or wheezes. Abdomen is soft and nontender without bruits. Extremities reveal intact radial artery and posterior tibial pulses bilaterally. There is no peripheral edema. Results & Data ([facility]) Vital Signs (Past 12 Hours) Vital Signs Temp Pulse Resp BP BP Pulse Ox 11/01/19 10:38 63 20 129/78 94 11/01/19 07:00 36.6 C 60 18 124/71 92 11/01/19 04:00 36.5 C 60 20 89/50 L 91 10/31/19 23:29 37.0 C 58 L 17 110/67 91 PG Care Time/CCT Total # of Minutes Spent Total Time Spent with Patient: Total time spent is greater than 50% in coordination of care (as documented) at patient's floor/unit and/or counseling patient: Coding Level of Care Code 27856 Subseq Hosp Care Lvl 3 Diagnoses Substernal chest pain R07.2 Coronary artery disease I25.10 Associated angina: without angina Coronary Disease-Associated Artery/Lesion type: [place] artery [place] vs. transplanted heart: [place] heart HTN (hypertension) I10 Hypertension type: unspecified Hyperlipidemia E78.5 Hyperlipidemia type: unspecified (1) Coronary artery disease Associated angina: without angina Coronary Disease-Associated Artery/Lesion type: [place] artery [place] vs. transplanted heart: [place] heart Qualified Code(s): I25.10 - Atherosclerotic heart disease of [place] coronary artery without angina pectoris (2) Hyperlipidemia Hyperlipidemia type: unspecified Qualified Code(s): E78.5 - Hyperlipidemia, unspecified (3) HTN (hypertension) Hypertension type: unspecified Qualified Code(s): I10 - Essential (primary) hypertension
--- NOTE | 2019-11-01 10:46 | Cardiac Catheterization ---
ACC Data: [employer] Associate Cardiac Status Clinical evaluation leading to the procedure CAD Presenation: Positive Stress Test and Stable angina Diagnostic Physicians Name: Sony Zaragoza MD Closure Device Recommendations: PCI without planned CABG Cardiac Cath Procedure Full Procedure Date November 01, 2019 Pre-Procedure Diagnosis Pre-Procedure Diagnosis: Angina and Positive Stress Test AUC Score AUC Score: 8 Post-Procedure Diagnosis Post-Procedure Diagnosis: Severe CAD Procedure(s) Performed Procedure(s) Performed: Coronary Angiography and Left Heart Cath Hospitality Team Member Sony Zaragoza MD Bowl Topper(s) none Estimated Blood Loss Estimated Blood Loss: 10cc Medication(s) Medication(s): Fentanyl Summary of Findings Please see full diagnostic cardiac catheterization report for details. PCI of proximal LAD performed with 2.75 mm x 33 mm Xience drug-eluting stent, postdilated with 3 mm NC balloon with excellent angiographic results PCI of distal edge in-stent restenosis of right coronary artery stent performed with 3.5 mm x 18 mm Xience drug-eluting stent, postdilated with 4 mm NC balloon with excellent angiographic results. Hemodynamics Rest Ao:: 164/87 Final Ao: 155/82 LV: not performed Recommendations Recommendations: PCI without planned CABG Radiation Exposure (mGy) 2766 Contrast (mls) 170 Fluids (cc crystalloids) Fluids (cc crystalloids): 100 Procedural Complication(s) None Disposition PCU I attest to the content of the Intraoperative Record and any orders documented therein. Any exceptions are noted below. PG Care Time/CCT Total # of Minutes Spent Total Time Spent with Patient: Total time spent is greater than 50% in coordination of care (as documented) at patient's floor/unit and/or counseling patient:
[2019-11-01] MEDS: MoRPHine SULFATE 2 MG/ML CARP IV PRN (11:46)
[2019-11-01] MEDS ORDERED: NITROGLYCERIN 0.3 MG/1 TAB 100 TAB BTL SL STA (12:37)
--- NOTE | 2019-11-01 13:31 | Hospitalist Progress Note ---
Date of Service November 01, 2019 Assessment & Plan (1) Substernal chest pain: Underwent cath on 10/31 after symptoms during a stress test. Ended up with PCI to the proximal LAD and distal RCA (at site of prior stent). Continue home aspirin, metoprolol, losartan, Crestor Started Plavix post-cath. Tolerated it well last time, so presumably continue x 1 year. (2) Coronary artery disease: Patient with history of CAD status post [place] in 2007 with stent placement x2 presenting with chest pain as above. Continue above cardiac meds (3) Microscopic colitis: Chronic. Well-controlled. Continue dicyclomine 10 mg p.o. 3 times daily Continue budesonide 9 mg p.o. daily (4) HTN (hypertension): Blood pressure stable, 100/55 at present. Continue losartan 25 mg p.o. every afternoon Continue metoprolol 25 mg p.o. twice daily Continue to monitor (5) Hyperlipidemia: Chronic. Stable. Continue Crestor 40 mg p.o. every morning (6) GERD (gastroesophageal reflux disease): Chronic. Stable. Continue omeprazole 20 mg p.o. daily (7) Anxiety: Chronic. Stable. Continue paroxetine 40 mg p.o. every morning Continue buspirone 5 mg p.o. every morning (8) DVT prophylaxis: SCDs - Low DVT risk per admission calculator Admission and Anticipated Discharge Date Admission Date: October 31, 2019 Subjective Continued 3/10 chest pain at present. Was apparently 10/10 right after the catheterization. Reports no fevers/chills, shortness of breath, abdominal pain, nausea, or vomiting. Physical Exam Constitutional: WD/WN, vitals as above Eyes: EOM intact bilaterally; no conjunctival abnormality ENMT: external ear and nose normal, oropharynx normal Neck: trachea midline, no thyromegaly normal visual inspection Respiratory: normal respiratory effort, lungs clear to auscultation no respiratory distress Cardiovascular: RRR, no murmur, no edema Gastrointestinal (Abdomen): Inspection/Auscultation: abdomen normal to inspection; abdomen not distended Musculoskeletal: no cyanosis or clubbing, extremities motor strength 5/5 Skin: no rashes, warm and dry Neurologic: moves all extremities and awake Psychiatric: Orientation: alert, oriented to person and cooperative Results & Data Results & Data ([facility]) Vital Signs (Past 12 Hours) Vital Signs Temp Pulse Pulse Pulse Resp BP BP 08/03/20 12:44 100/54 L 11/01/19 12:14 128/84 11/01/19 11:44 131/84 11/01/19 11:29 36.5 C 61 18 144/79 H 11/01/19 11:26 36.5 C 64 61 18 144/79 H 11/01/19 11:04 60 20 97/65 L 11/01/19 10:50 61 20 105/70 11/01/19 10:38 63 20 129/78 11/01/19 07:00 36.6 C 60 18 124/71 11/01/19 04:00 36.5 C 60 20 89/50 L Pulse Ox 11/01/19 12:44 93 11/01/19 12:14 97 11/01/19 11:44 92 11/01/19 11:29 92 11/01/19 11:26 92 11/01/19 11:04 92 11/01/19 10:50 91 11/01/19 10:38 94 11/01/19 07:00 92 11/01/19 04:00 91 PG Care Time/CCT Total # of Minutes Spent Total Time Spent with Patient: Total time spent is greater than 50% in coordi nation of care (as documented) at patient's floor/unit and/or counseling patient: Coding Level of Care Code 75685 Subseq Hosp Care Lvl 3 Diagnoses Substernal chest pain R07.2 Coronary artery disease I25.10 Coronary Disease-Associated Artery/Lesion type: [place] artery [place] vs. transplanted heart: [place] heart Associated angina: without angina Microscopic colitis K52.839 Microscopic colitis type: unspecified HTN (hypertension) I10 Hypertension type: unspecified Hyperlipidemia E78.5 Hyperlipidemia type: unspecified GERD (gastroesophageal reflux disease) K21.9 Esophagitis presence: esophagitis presence not specified Anxiety F41.9 DVT prophylaxis Z29.9 (1) Coronary artery disease Coronary Disease-Associated Artery/Lesion type: [place] artery [place] vs. transplanted heart: [place] heart Associated angina: without angina Qualified Code(s): I25.10 - Atherosclerotic heart disease of [place] coronary artery without angina pectoris (2) Microscopic colitis Microscopic colitis type: unspecified Qualified Code(s): K52.839 - Microscop ic colitis, unspecified (3) HTN (hypertension) Hypertension type: unspecified Qualified Code(s): I10 - Essential (primary) hypertension (4) Hyperlipidemia Hyperlipidemia type: unspecified Qualified Code(s): E78.5 - Hyperlipidemia, unspecified (5) GERD (gastroesophageal reflux disease) Esophagitis presence: esophagitis presence not specified Qualified Code(s): K21.9 - Gastro-esophageal reflux disease without esophagitis
[2019-11-01] MEDS ORDERED: HYDROCODONE/ACETAMOPHEN 5/325MG TAB PO PRN (16:57)
--- NOTE | 2019-11-01 17:54 | Electrocardiogram Report ---
Test Reason : Blood Pressure : / mmHG Vent. Rate : 063 BPM Atrial Rate : 063 BPM P-R Int : 164 ms QRS Dur : 092 ms QT Int : 418 ms P-R-T Axes : 001 004 006 degrees QTc Int : 427 ms Normal sinus rhythm Poor R wave progression, consider anterior HI vs. lead placement vs. LVH Nonspecific ST abnormality Abnormal ECG When compared with ECG of 30-OCT-2019 05:18, No significant change was found Confirmed by Mikel Romero ([id number]) on 11/01/2019 5:53:32 PM Referred By: REFERRED SELF Confirmed By:Malik Romero
--- NOTE | 2019-11-01 17:56 | Electrocardiogram Report ---
Test Reason : Blood Pressure : / mmHG Vent. Rate : 061 BPM Atrial Rate : 061 BPM P-R Int : 168 ms QRS Dur : 086 ms QT Int : 414 ms P-R-T Axes : 041 010 008 degrees QTc Int : 416 ms Normal sinus rhythm Nonspecific ST abnormality When compared with ECG of 01-NOV-2019 10:53, (unconfirmed) Nonspecific T wave abnormality has replaced inverted T waves in Anterior leads Confirmed by Mikel Romero ([id number]) on 11/01/2019 5:55:55 PM Referred By: REFERRED SELF Confirmed By:Malik Romero
[2019-11-01] MEDS ORDERED: SODIUM CHLORIDE 0.65% NA SOLN 45 ML (OCEAN) ONE (19:25)
[2019-11-01] MEDS: LOSARTAN POTASSIUM 25 MG TAB PO SCH (20:50)
[2019-11-01] MEDS: MELATONIN 3 MG TAB PO PRN (21:54)
[2019-11-02] MEDS: ACETAMINOPHEN 325 MG TAB PO PRN (06:29)
[2019-11-02 06:36] LABS: Hematocrit (blood only) 40.5 % (37-47); Hemoglobin 13.7 g/dL (12.0-16.0); Mean Corpuscular Hgb Conc 33.8 g/dL (32-36); Mean Corpuscular Volume 94.6 fL (80-100); Mean Platelet Volume 10.1 fL (7.4-10.4); Platelet Count 187 K/uL (130-400); RDW Standard Deviation 44.7 fL (36.4-46.3); Red Blood Count 4.28 M/uL (4.2-5.4); White Blood Count 9.53 K/uL (4.8-10.8)
[2019-11-02 07:12] LABS: BUN Creatinine Ratio 22.4 (10-20); Calcium 8.4 mg/dl (8.5-10.1); Creatinine Clr Calc Pharmacy 59.2 ml/min; Est GFR (African American) 82.2; Est GFR (Non-African American) 70.9; Magnesium 1.9 mg/dl (1.8-2.4); Potassium 4.1 mmol/L (3.5-5.1)
[2019-11-02] MEDS: METOPROLOL TARTRATE 25 MG TAB PO SCH (07:54)
[2019-11-02] MEDS: DICYCLOMINE HCL 10 MG CAP PO SCH ×2 (07:54→13:28)
[2019-11-02] MEDS: PARoxetine HCL 20 MG TAB PO SCH (07:54)
[2019-11-02] MEDS: ASPIRIN 81 MG ECTAB PO SCH (07:54)
[2019-11-02] MEDS: VALACYCLOVIR HCL 500 MG TABLET PO SCH (07:55)
[2019-11-02] MEDS: CHOLECALCIFEROL 1,000 UNITS 25 MCG TAB PO SCH (07:55)
[2019-11-02] MEDS: PANTOprazole 40 MG TAB PO SCH (07:55)
[2019-11-02] MEDS: ROSUVASTATIN CALCIUM 20 MG TAB PO SCH (07:55)
[2019-11-02] MEDS: BUDESONIDE EC 3 MG CAP PO SCH (07:55)
[2019-11-02] MEDS ORDERED: CLOPIDOGREL BISULFATE 75 MG TAB PO SCH (09:00)
[2019-11-02] MEDS ORDERED: FLUTICASONE PROPIONATE NA SPR 16 GM BTL SCH (10:00)
[2019-11-02] MEDS: DICLOFENAC SOD 1% GEL 100 GM TUBE EXT SCH ×2 (10:55→13:29)
--- NOTE | 2019-11-02 13:01 | Cardiology Progress Note ---
Date of Service November 02, 2019 Assessment & Plan (1) Acute coronary syndromes: -occurred during the dobutamine stress test yesterday. -90% LAD stenosis just distal to the prior stent. -90% distal instent restenosis in the mid RCA stent. -2.75 x 33 Xience stent placed in LAD. -3.5 x 18 Xience stent placed in the RCA. (2) Coronary artery disease: -diagnosed at time of an [place] in 2007. -proximal LAD and mid RCA stents placed at that time -continue metoprolol, losartan, rosuvastatin, Plavix, and aspirin. (3) HTN (hypertension): -adequate control on current regimen. (4) Hyperlipidemia: -continue rosuvastatin. Admission and Anticipated Discharge Date Admission Date: October 31, 2019 Anticipated date of discharge: 10/31/19 Subjective The patient is resting comfortably in bed without complaints of chest pain or dyspnea. Claims to be exhausted from the events of yesterday. Physical Exam Physical Exam: In general this is a well-developed well-nourished white female in no acute distress. HEENT exam is negative. Neck is supple with full carotid upstrokes. There are no carotid bruits. Jugular venous pressure is flat at 90. There is no thyromegaly. Cardiovascular exam reveals a regular rhythm with a normal S1 and S2. No S3, S4, or murmurs are noted. Lungs are clear w ithout rales, rhonchi, or wheezes. Abdomen is soft and nontender without bruits. Extremities reveal an intact dressing across the right radial artery. There is no peripheral edema. Results & Data ([facility]) Vital Signs (Past 12 Hours) Vital Signs Temp Pulse Pulse Resp BP Pulse Ox 11/02/19 11:36 36.5 C 58 L 19 103/66 96 11/02/19 08:00 61 11/02/19 07:20 36.5 C 62 18 110/72 93 11/02/19 07:00 61 11/02/19 03:23 36.4 C L 63 17 121/[address] recording monitor is benign. PG Care Time/CCT Total # of Minutes Spent Total Time Spent with Patient: Total time spent is greater than 50% in coordination of care (as documented) at patient's floor/unit and/or counseling patient: Coding Level of Care Code 66549 Subseq Hosp Care Lvl 3 Diagnoses Acute coronary syndromes I24.9 Coronary artery disease I25.10 Coronary Disease-Associated Artery/Lesion type: [place] artery [place] vs. transplanted heart: [place] heart Associated angina: without angina HTN (hypertension) I10 Hypertension type: unspecified Hyperlipidemia E78.5 Hyperlipidemia type: unspecified (1) Coronary artery disease Coronary Disease-Associated Artery/Lesion type: [place] artery [place] vs. transplanted heart: [place] heart Associated angina: without angina Qualified Code(s): I25.10 - Atherosclerotic heart disease of [place] coronary artery w ithout angina pectoris (2) HTN (hypertension) Hypertension type: unspecified Qualified Code(s): I10 - Essential (primary) hypertension (3) Hyperlipidemia Hyperlipidemia type: unspecified Qualified Code(s): E78.5 - Hyperlipidemia, unspecified
--- NOTE | 2019-11-02 14:34 | Discharge Summary ---
Date of Service November 02, 2019 Admission HPI Per Admitting Provider Amy Vieira is a 69yo female with history of HTN, HLP, strong family history of CAD as well as personal history of CAD with [place] in 2007 s/p cardiac stent x 2 performed in [place]. Patient reports that she had 3 blockages however only 2 were amenable to stent. This morning around 0400 the patient was woken from sleep by chest pain. Chest pain was substernal, 10 out of 10 in severity, heavy pressure in nature with radiation across the precordium. Pain associated with shortness of breath, nausea and diarrhea. The patient took 2 Rolaids without relief that a sublingual nitro x1 which improved her pain. She reports that the symptoms are quite similar to when she had her [place] back in 2007. Presently she feels much improved, still some mild chest heaviness. Patient follows with Dr. Mcfarland from cardiology. She saw him on 10/28/2019 with complaint of progressive dyspnea on exertion. Dr. Kurtz mentioned he wanted to order a stress test on her to be performed outpatient. ER course: Aspirin 325 mg, Nitropaste Principal Diagnosis Cardiac chest pain Discharge Exam Constitutional WD/WN, vitals as above Eyes EOM intact bilaterally; no conjunctival abnormality ENMT external ear and nose normal, oropharynx normal Neck trachea midline, no thyromegaly normal visual inspection Respiratory normal respiratory effort, lungs clear to auscultation no respiratory distress Cardiovascular RRR, no murmur, no edema Gastrointestinal (Abdomen) Inspection/Auscultation: abdomen normal to inspection; abdomen not distended Musculoskeletal no cyanosis or clubbing, extremities motor strength 5/5 Skin no rashes, warm and dry Neurologic moves all extremities and awake Psychiatric Orientation: alert, oriented to person and cooperative Discharge Data Allergies Allergy/AdvReac Type Severity Reaction Status Date / Time No Known Drug Allergies Allergy Unknown Verified 10/30/19 05:42 Consultations 10/30/19 05:48 ED Decision to Admit Stat 10/31/19 08:01 Consult Cardiology Routine Procedures Performed Operation Date: 11/01/19 09:00 Actual Procedures p Cath, Left with Cors and Vent - Sorin Romero MD s Cineradiography w/Routine Exam - Sorin Romero MD s Drug Eluting Stent SGl Vessel - Sony Zaragoza MD s Drug Eluting Stent each ADDTL Vessel - Sony Zaragoza MD Ordered Studies 11/01/19 08:55 CL Cath Imgs for PACS use only Stat Hospital Course (1) Substernal chest pain: Underwent cath on 10/31 after symptoms during a stress test. Ended up with PCI to the proximal LAD and distal RCA (at site of prior stent). Continue home aspirin, metoprolol, losartan, Crestor Started Plavix post-cath. Tolerated it well last time, so continue x 1 year. (2) Coronary artery disease: Patient with history of CAD status post [place] in 2007 with stent placement x2 presenting with chest pain as above. Continue above cardiac meds (3) Microscopic colitis: Chronic. Well-controlled. Continue dicyclomine 10 mg p.o. 3 times daily Continue budesonide 9 mg p.o. daily (4) HTN (hypertension): Blood pressure stable, 125/55 at present. Continue losartan 25 mg p.o. every afternoon Continue metoprolol 25 mg p.o. twice daily Continue to monitor (5) Hyperlipidemia: Chronic. Stable. Continue Crestor 40 mg p.o. every morning (6) GERD (gastroesophageal reflux disease): Chronic. Stable. Switched omeprazole to pantoprazole for interaction with Plavix. (7) Anxiety: Chronic. Stable. Continue paroxetine 40 mg p.o. every morning Continue buspirone 5 mg p.o. every morning (8) DVT prophylaxis: SCDs - Low DVT risk per admission calculator Total Time Total Time Spent Total Time Spent (In Minutes): 35 Discharge Plan Discharge Items Patient Disposition: Home - Self-Care Reason For Visit: CHEST PAIN Discharge Diagnosis: Cardiac chest pain Activity: Resume your previous activity Non-emergency contact: Primary Care Provider and [employer]pike As[employer]er Call non-emergency contact if: your pain is not controlled Follow-up/Referrals: Macario Khan MD [Physician] - (Please see Dr. Khan or Dr. Mcfarland in the office in a week or two.) Terrell Morfin MD [Primary Care Provider] - Diet: Heart Healthy Addtl Attending Provider Instructions: You were admitted to the hospital with chest pain. We did a stress test that was positive, and you ended up needing a catheterization. You required two stents. We will have you on your Plavix for another year as it worked well for you before. I did switch you to Protonix (pantoprazole) from omeprazole because omeprazole can sometimes interact with Plavix. Please follow up with Dr. Khan or Dr. Mcfarland in the office in 1-2 weeks. Pending Studies at Discharge: No Stand-Alone Forms: My [facility], Smoking Cessation Medications and DC Order Prescriptions: New clopidogrel 75 mg Tablet 75 mg PO QAM Qty: 30 RF: 1 pantoprazole 20 mg tablet,delayed release (DR/EC) 20 mg PO DAILY Qty: 30 RF: 0 Continued losartan 25 mg tablet 25 mg PO QPM Qty: 90 RF: 0 buspirone 5 mg tablet 5 mg PO QAM Qty: 90 RF: 0 dicyclomine 10 mg capsule 10 mg PO TID Qty: 360 RF: 1 valacyclovir 1 gram tablet 1,000 mg PO QAM Qty: 90 RF: 1 nitroglycerin 0.4 mg tablet, sublingual 0.4 mg SL Q5M PRN (Reason: chest pain) Qty: 30 RF: 1 rosuvastatin 40 mg tablet 40 mg PO QAM Qty: 90 RF: 0 metoprolol tartrate 50 mg tablet 25 mg PO BID Qty: 90 RF: 0 budesonide 3 mg capsule,delayed,extend.release 9 mg PO DAILY 56 Days Qty: 168 RF: 0 diclofenac sodium 1 % gel 2 gm TOP QID Qty: 100 RF: 2 aspirin [Aspir-Low] 81 mg tablet,delayed release (DR/EC) 81 mg PO QAM RF: 0 paroxetine HCl 40 mg tablet 40 mg PO QAM RF: 0 cholecalciferol (vitamin D3) 1,000 unit capsule 1,000 units PO QAM RF: 0 Discontinued omeprazole 20 mg capsule,delayed release(DR/EC) 20 mg PO DAILY Qty: 90 RF: 0 Discharge Orders: Discharge Order (Routine); Ordered 11/02/19 Ordered By: Rahul Wells Admission Data Admit Date/Time: 10/31/19 22:00 Attending Provider: Rahul Wells Admit Provider: Ana Ray Primary Care Provider: Terrell Morfin V. Other Providers: Rahul Wells ; Ana Ray ; Macario Khan Other Interventions: Discharge Summary Assessment (RN) Last Done: 11/02/19 13:31 Coding Level of Care Code D/C Day Management >30 mins Diagnoses Substernal chest pain R07.2 Coronary artery disease I25.10 Coronary Disease-Associated Artery/Lesion type: [place] artery [place] vs. transplanted heart: [place] heart Associated angina: without angina Microscopic colitis K52.839 Microscopic colitis type: unspecified HTN (hypertension) I10 Hypertension type: unspecified Hyperlipidemia E78.5 Hyperlipidemia type: unspecified GERD (gastroesophageal reflux disease) K21.9 Esophagitis presence: esophagitis presence not specified Anxiety F41.9 DVT prophylaxis Z29.9
--- NOTE | 2019-11-05 08:51 | XCELERA ---
[id number]
== END 2019-11-02 15:36 | disposition home or self-care (01) | DRG 247 ==
LOC: 2N 05:13 → ED 05:13 → SUATTDRO 06:19 → 2N 06:41 → SUATTDRO 10-31 22:00 → 2S 11-01 09:55